=== PATIENT | male | born 1985 | race Caucasian/White ===

== ENCOUNTER 2022-06-06 11:33 | Day surgery (SDC) | payer MEDICARE ==
--- NOTE | 2022-06-06 09:11 | HP ---
DATE OF SURGERY: 06/06/2022 HISTORY OF PRESENT ILLNESS: The patient is a 36-year-old who had some heartburn sometimes. No prior upper endoscopy. No family history of esophageal or colon cancer. PAST MEDICAL HISTORY: He denies any chronic illnesses. Schizophrenia, depression. PAST SURGICAL HISTORY: Tonsillectomy. MEDICATIONS: Invega, Viibryd, Prilosec, loratadine. ALLERGIES: DEPAKOTE. SEROQUEL. FAMILY HISTORY: Unknown. SOCIAL HISTORY: Every day smoker. No alcohol abuse. REVIEW OF SYSTEMS: Fourteen systems reviewed. No chest pain or palpitations. Other systems negative or noncontributory as above and per preadmission questionnaire. PHYSICAL EXAMINATION: GENERAL: No acute distress. HEENT: Sclerae nonicteric. NECK: No JVD. CHEST: Equal excursion, nonlabored breathing. CVS: Regular rate and rhythm. ABDOMEN: Soft. No peritoneal signs. EXTREMITIES: No significant edema. SKIN: Dry. NEURO: Alert, oriented, moving extremities symmetrically. PSYCH: Appropriate mood and affect. IMPRESSION: Heartburn. No prior endoscopy. He is in need of upper endoscopy for further evaluation. Risks and benefits are explained in detail but not limited to risk of bleeding or infection, risk of bowel injury or perforation possibly requiring further procedure, risk of missed or nondiagnosis or incomplete exam but not limited to, consent obtained. Will proceed with EGD possible biopsy under MAC anesthesia as an outpatient.
[2022-06-06] MEDS ORDERED: Lactated Ringers 1,000 ML IV SCH (12:30)
[2022-06-06] MEDS ORDERED: Xylocaine-Mpf 2% 5 Ml Vial ONE (14:17)
[2022-06-06] MEDS ORDERED: DIPRIVAN 200 MG/20 ML IV ONE (14:17)
[2022-06-06] MEDS ORDERED: Versed 2 MG/2 ML Injection ONE (14:23)
[2022-06-06 15:34] VITALS: O2SAT 100
[2022-06-06 16:01] VITALS: BP 162/72; PULSE 84
--- NOTE | 2022-06-07 08:54 | OP ---
SURGERY DATE/TIME: 06/06/2022 1419 PREOPERATIVE DIAGNOSIS: Increased heartburn, epigastric discomfort radiating. POSTOPERATIVE DIAGNOSIS: Mild gastric erythema otherwise fairly unimpressive upper endoscopy. PROCEDURES: 1) EGD with cold biopsy of small bowel to evaluate for celiac sprue. 2) Cold biopsy of the antrum to evaluate for Helicobacter pylori. 3) Cold biopsy distal esophagus to evaluate for early microscopic inflammation. 4) Cold biopsy mid esophagus to evaluate for eosinophilic esophagitis. 5) ASA Class II. SURGEON: Dr. Clint Siegel. ANESTHESIA: MAC. ESTIMATED BLOOD LOSS: Minimal. INDICATIONS: As noted above. Risks and benefits explained in detail and not limited to and consent obtained. DESCRIPTION OF PROCEDURE AND FINDINGS: The patient is taken to the endoscopy room. MAC anesthesia introduced. After official time out and no disagreement with planned procedure, a bite block positioned. Video gastroscope easily passed down the esophagus through the patent pylorus to the third and fourth parts of the duodenum. The scope is carefully pulled back. Given his symptoms and no major ulcers or major erosions that had been noted, cold biopsy is taken to evaluate for celiac disease and to rule out other causes of his symptoms. Good hemostasis noted. The scope pulled back in the stomach. He had some mild gastric erythema. No evidence of any ulcers, masses or polyps. Cold biopsy taken to evaluate for Helicobacter pylori. Good hemostasis noted. On retroflex, the gastroesophageal junction seemed to be fairly snug against the scope. No signs of any large hiatal hernia. The scope is straightened. Gastroesophageal junction was about 40 cm. The Z-line was fairly crisp. There were no signs of any erosions. No signs of any Petersen's, some random cold biopsies taken distal esophagus to evaluate for microscopic inflammation. Good hemostasis noted. The scope pulled back up in mid esophagus, some random cold biopsies taken mid esophagus to evaluate for eosinophilic esophagitis and to rule out other causes of his symptoms. Otherwise, no signs of any masses or mucosal lesions on withdrawal of the scope. The scope is withdrawn. There had not been real impressive findings, likely see if he has had a gallbladder ultrasound ordered. Will check a gallbladder ultrasound and if negative may need a HIDA scan. There is no family here to discuss the findings with. I will see him back in the office next week.
== END 2022-06-06 16:00 | disposition home or self-care (01) ==
LOC: SDC 11:33
PROVIDERS: ATTEND Surgery
DX: K31.89 Other diseases of stomach and duodenum (principal); R10.13 Epigastric pain
CPT/HCPCS: J2250; J2704

== ENCOUNTER 2022-08-15 12:32 | Day surgery (SDC) | payer MEDICARE ==
--- NOTE | 2022-08-15 10:01 | HP ---
DATE OF SURGERY: 08/15/2022 HISTORY OF PRESENT ILLNESS: The patient is a 36-year-old who had upper endoscopy showed some mild gastritis and inflammation of esophagus. He had study show gallbladder had some gallstones. I feel he has acute exacerbation of chronic cholecystitis, symptomatic cholelithiasis. I feel he would benefit from cholecystectomy. PAST MEDICAL HISTORY: He had some reflux, heartburn, depression. History of schizophrenia. PAST SURGICAL HISTORY: Tonsillectomy. He had an upper endoscopy show some mild gastritis. MEDICATIONS: Loratadine, Invega Trinza, Viibryd, Prilosec [id number]. ALLERGIES: DIVALPROEX SODIUM. QUETIAPINE. FAMILY HISTORY: Negative in regards to this problem. SOCIAL HISTORY: Smoker. No alcohol abuse. REVIEW OF SYSTEMS: Fourteen systems reviewed. No chest pain or palpitations. Other systems negative or noncontributory as above and per preadmission questionnaire. LAB DATA AND TESTS: He had an ultrasound show cholelithiasis. PHYSICAL EXAMINATION: GENERAL: No acute distress. HEENT: Sclerae nonicteric. NECK: No JVD. CHEST: Equal excursion, nonlabored breathing. CVS: Regular rate and rhythm. ABDOMEN: Soft. No peritoneal signs. EXTREMITIES: No significant edema. NEURO: Alert, oriented, moving extremities symmetrically. PSYCH: Appropriate mood and affect. SKIN: Dry. IMPRESSION: Acute exacerbation of chronic cholecystitis, symptomatic cholelithiasis. I feel the patient will benefit from cholecystectomy. Risks and benefits were explained in detail including but not limited to bleeding or infection, risk of bowel injury or perforation, risk of bowel, bladder or blood vessel injury, risk of bile leak, bile duct injury, retained stone or sludge possibly requiring further procedure either open or ERCP, general risk of anesthesia, deep venous thrombosis, pulmonary embolism, perioperative risk of aches, pains, bloating, constipation and/or loose stools possibly even chronic in nature, possibility the procedure may not improve his symptoms may need further work up and/or testing, possibility of open procedure. He understands and agrees to the planned procedure, will proceed with laparoscopic cholecystectomy with possible open when OR time available.
[~2022-08-15 12:32] MED LIST: Lactated Ringers 1,000 ML IV ONE; Sensorcaine 0.25% 10 ML ONE
[2022-08-15] MEDS ORDERED: MEFOXIN 2 GM PREMIX** 2 GM/50 ML ML IV ONE (13:16)
[2022-08-15] MEDS ORDERED: Lactated Ringers 1,000 ML IV ONE (13:16)
[2022-08-15] MEDS ORDERED: Lactated Ringers 1,000 ML IV SCH (13:30)
[2022-08-15] MEDS ORDERED: DIPRIVAN 200 MG/20 ML IV ONE (13:38)
[2022-08-15] MEDS ORDERED: Zemuron 100 MG/10 ML ONE ×2 (13:38→15:26)
[2022-08-15] MEDS ORDERED: Versed 2 MG/2 ML Injection ONE (13:38)
[2022-08-15] MEDS ORDERED: SUBLIMAZE 250 MCG/5 ML ONE (13:39)
[2022-08-15] MEDS ORDERED: Xylocaine-Mpf 2% 5 Ml Vial ONE (13:39)
[2022-08-15] MEDS ORDERED: Sensorcaine 0.25% 10 ML ONE (13:42)
[2022-08-15] MEDS ORDERED: MEFOXIN 2 GM PREMIX** 2 GM/50 ML ML IV SCH (14:00)
[2022-08-15] MEDS ORDERED: BRIDION 200MG/2ML IV ONE (15:37)
[2022-08-15] MEDS ORDERED: TORAdol 30 mg Injection ONE (15:44)
[2022-08-15] MEDS ORDERED: DILAUDID 2 MG INJECTION ONE (15:46)
[2022-08-15 17:20] VITALS: O2SAT 97
[2022-08-15 17:29] VITALS: BP 124/74; PULSE 84
--- NOTE | 2022-08-16 09:20 | OP ---
SURGERY DATE/TIME: 08/15/2022 1444 PREOPERATIVE DIAGNOSIS: Acute exacerbation of chronic cholecystitis, symptomatic cholelithiasis. POSTOPERATIVE DIAGNOSIS: Acute exacerbation of chronic cholecystitis, symptomatic cholelithiasis. PROCEDURE: Laparoscopic cholecystectomy. SURGEON: Dr. Bhupinder Siegel. ANESTHESIA: General. ESTIMATED BLOOD LOSS: Minimal. INDICATIONS: As noted above. Risks and benefits explained in detail but not limited to and consent obtained. DESCRIPTION OF PROCEDURE AND FINDINGS: The patient was taken to the operating room. General anesthesia induced. Abdomen prepped and draped in usual sterile fashion. After official time out and no disagreement with planned procedure, a transverse incision made in the supraumbilical area. Fascia grasped, pulled upward. Veress needle inserted and tested with saline. Pneumoperitoneum accomplished insufflating opening pressure of 0-15. A 5 mm bladeless port and camera were inserted without difficulty at the supraumbilical site. There was no evidence of any intra-abdominal injury secondary trocar insertion. Two - 5 mm right upper quadrant ports were placed and 11 mm epigastric port. The gallbladder dissected posterior, lateral to anterior fashion. It had some chronic inflammatory reaction. Slowly and carefully the cystic duct and infundibular junction slowly and carefully well skeletonized until the critical view was obtained anteriorly and posteriorly. Once this is accomplished, the cystic duct and cystic artery were clipped x3 and divided in the usual fashion. The gallbladder is slowly and carefully dissected free from its dense attachments to the liver bed staying directly on the gallbladder wall clipping additional oozing side branches off the cystic artery and cystic vein directly on the gallbladder wall as necessary. Just prior to releasing from final attachments to the anterior edge of the liver, the liver visceral peritoneum had good hemostasis at this point. Gallbladder is released from final attachments, placed in a bag pulled up into the supraumbilical port site. Decompressed of bile and moderately large stones carefully retrieved allowing the gallbladder and the bag to be pulled free and passed off. The puncture closure device closed the fascial defect at the 1011 site. Copious amount of irrigation accomplished lateral to the liver and subhepatic space irrigating clear. Liver bed re-inspected. Clips noted to be in place cystic duct and cystic artery stumps. No signs of any active bleeding or bile leakage. It was felt there was no benefit in drain placement. Pneumoperitoneum decompressed. The wound irrigated out. Skin incision closed with 4-0 Vicryl. Steri-Strips and sterile dressing applied. The patient tolerated the procedure well. There were no immediate complications. There was no family to discuss the findings with out in the waiting area.
== END 2022-08-15 17:25 | disposition home or self-care (01) ==
LOC: SDC 12:32
PROVIDERS: ATTEND Surgery
DX: K80.00 Calculus of gallbladder with acute cholecystitis without obstruction (principal)
CPT/HCPCS: J0694; J1170; J1885; J2250; J2704; J3010